=== PATIENT | female | born 1955 | race Caucasian/White ===

== ENCOUNTER 2019-07-24 14:08 | Emergency (ER) | payer MEDICARE ==
[~2019-07-24] VITALS: Ht 152.4 cm; Wt 52.0 kg
--- NOTE | 2019-07-24 14:19 | NUR ---
BIB [facility]. C/O lower ABD pain and dark tarry stools x 1 month. Reports lightheadedness and sternal, non-radiating CP. Denies hematemesis. Denies palpitations or SOB beyond her norm (hx COPD, current smoker). Placed on NIBP, pulse ox and manager cardiac cath. Will continue to monitor.
[2019-07-24] MEDS ORDERED: ONDANSETRON 2MG/ML, 2ML ONE (14:46)
[2019-07-24] MEDS ORDERED: FAMOTIDINE 20 MG/2 ML ONE (14:46)
--- NOTE | 2019-07-24 14:55 | NUR ---
Pt resting in bed, getting lab drawn and then to xray.
--- NOTE | 2019-07-24 15:05 | NUR ---
Pt back from xray.
[2019-07-24 15:06] LABS: BASOPHILS # (AUTO) 0.04 x10^3/uL (0-0.1); BASOPHILS % (AUTO) 1 % (0-1); EOSINOPHILS # (AUTO) 0.18 x10^3/uL (0-0.4); EOSINOPHILS % (AUTO) 3 % (1-7); LYMPHOCYTES # (AUTO) 1.91 x10^3/uL (1-3.4); LYMPHOCYTES % (AUTO) 29 % (22-44); MD NO; MEAN CORPUSCULAR HEMOGLOBIN 33.8 pg (27.0-34.8); MEAN CORPUSCULAR HGB CONC 33.1 g/dL (32.4-35.8); MEAN CORPUSCULAR VOLUME 102.3 fL (80-100); MEAN PLATELET VOLUME 6.6 fL (7.4-10.4); MONOCYTES # (AUTO) 0.42 x10^3/uL (0.2-0.8); MONOCYTES % (AUTO) 7 % (2-9); NEUTROPHILS # (AUTO) 3.95 x10^3/uL (1.8-6.8); NEUTROPHILS % (AUTO) 61 % (42-75); PLATELET COUNT 304 x10^3/uL (130-400); RED BLOOD COUNT 3.02 x10^6/uL (3.82-5.3); RED CELL DISTRIBUTION WIDTH 17.6 % (9.6-15.2)
[2019-07-24 15:11] LABS: INTERNATIONAL NORMALIZED RATIO 1.02 (0.93-1.1); PROTHROMBIN TIME 10.8 Seconds (9.6-11.5)
[2019-07-24 15:14] LABS: ALANINE AMINOTRANSFERASE 37 U/L (12-78); ALBUMIN 2.8 g/dL (3.4-5.0); ANION GAP 4 mmol/L (5-15); CALCIUM 7.6 mg/dL (8.5-10.1); CHLORIDE 113 mmol/L (98-107); CREATININE 0.67 mg/dL (0.55-1.02)
[2019-07-24 15:16] LABS: ALKALINE PHOSPHATASE 160 U/L (45-117); BILIRUBIN,TOTAL 0.3 mg/dL (0.2-1.0); TOTAL PROTEIN 6.4 g/dL (6.4-8.2)
--- NOTE | 2019-07-24 15:32 | NUR ---
Ambulated with a steady gait to the restroom.
[2019-07-24] MEDS ORDERED: FAMOTIDINE 20 MG/2 ML IV ONE (16:00)
[2019-07-24] MEDS ORDERED: SODIUM CHLORIDE FLUSH 10ML SYR IVF ONE (16:00)
[2019-07-24] MEDS ORDERED: ONDANSETRON 2MG/ML, 2ML IVPush ONE (16:00)
[2019-07-24] MEDS ORDERED: SODIUM CHLORIDE 0.9% 1,000ML IVBOLUS ONE (16:00)
[2019-07-24 16:02] VITALS: BP 139/85
[2019-07-24 16:18] LABS: MICROSCOPIC INDICATED
[2019-07-24 16:23] LABS: CULTURE INDICATED? NO
--- NOTE | 2019-07-24 16:36 | NUR ---
Patient/Caregiver given discharge instructions and they have confirmed that they understand the instructions. Patient ambulatory with steady gait.
== END 2019-07-24 16:39 | disposition home or self-care (01) ==
LOC: ED 15:18
DX: D53.9 Nutritional anemia, unspecified (principal); E88.09 Other disorders of plasma-protein metabolism, not elsewhere classified; E83.51 Hypocalcemia; R10.9 Unspecified abdominal pain; R11.2 Nausea with vomiting, unspecified
CPT/HCPCS: 36415; 74021; 80053; 81001; 83605; 83690; 85025; 85610; 93005; 96361; 96374; 96375; 99285; J2405; J3490; J7030

== ENCOUNTER 2019-07-26 13:26 | Emergency (ER) | payer MEDICARE ==
[~2019-07-26] VITALS: Ht 152.4 cm; Wt 53.6 kg
--- NOTE | 2019-07-26 13:52 | NUR ---
PT TO ED FOR BILATERAL LOWER ABD PAIN RELATED TO INABLILITY TO URINATE X2-3 DAYS. PT IS A POOR HISTORIAN AND IS SOMEWHAT UNCOOPERATIVE WITH ASSESSMENT. PT'S CONTINUES TO SPEAK OVER PT AND ANSWER FOR HER. PT CONNECTED TO MONITORS. VSS. PT REPEATS, "I FEEL LIKE I'M SLIPPING AWAY," MANY TIMES OVER. PT REASSURED THAT ALL VS ARE STABLE AT THIS TIME. PT UNWILLING TO ATTEMPT TO PROVIDE URINE SAMPLE. AWAITING EDMD ASSESSMENT.
[2019-07-26 13:58] VITALS: BP 136/91
--- NOTE | 2019-07-26 13:58 | NUR ---
PT BLSADDER SCANNED: 278mL
--- NOTE | 2019-07-26 14:00 | NUR ---
attempted to educate pt on s/s of dehydration. pt had an outburst stating "you're telling me there's nothing wrong with me and I'm in pain! You're just being a bitch!" pt educated that her behavior will not be tolerated and if it happens again, security will be called and she will be escorted to the exit.
--- NOTE | 2019-07-26 14:07 | NUR ---
DR. ALEXANDER TO BS FOR ASSESSMENT.
--- NOTE | 2019-07-26 14:43 | NUR ---
BURROUGHS PLACED WTIH STERILE TECHNIQUE. ASSISTED BY JESSICA REILLY. PT TOLERATED WELL.
[2019-07-26] MEDS ORDERED: PHENAZOPYRIDINE 200 MG TABLET ONE (14:53)
--- NOTE | 2019-07-26 14:59 | NUR ---
PT AND FOUND TO BE DRINKING VODKA IN HOSPITAL ROOM. PT ASKED TO GET DRESSED AND LEAVE. PT BECAME VERBALLY AGRESSIVE AND ABUSINVE WITH STAFF, YELLING, CUSSING AND CONINUING TO CALL STAFF NAMES. SECURITY CALLED AND ESCORTING PT TO EXIT. UNKNOWN WHERE IS AT THIS TIME.
[2019-07-26] MEDS ORDERED: PHENAZOPYRIDINE 200 MG TABLET PO ONE (15:00)
[2019-07-26 15:06] LABS: BASOPHILS % (AUTO) 0 % (0-1); EOSINOPHILS # (AUTO) 0.12 x10^3/uL (0-0.4); EOSINOPHILS % (AUTO) 2 % (1-7); LYMPHOCYTES # (AUTO) 1.61 x10^3/uL (1-3.4); LYMPHOCYTES % (AUTO) 26 % (22-44); MD NO; MEAN CORPUSCULAR HEMOGLOBIN 34.1 pg (27.0-34.8); MEAN CORPUSCULAR HGB CONC 33.4 g/dL (32.4-35.8); MEAN CORPUSCULAR VOLUME 102.3 fL (80-100); MEAN PLATELET VOLUME 6.6 fL (7.4-10.4); MONOCYTES # (AUTO) 0.39 x10^3/uL (0.2-0.8); MONOCYTES % (AUTO) 6 % (2-9); NEUTROPHILS # (AUTO) 3.99 x10^3/uL (1.8-6.8); NEUTROPHILS % (AUTO) 65 % (42-75); PLATELET COUNT 251 x10^3/uL (130-400); RED BLOOD COUNT 2.93 x10^6/uL (3.82-5.3); RED CELL DISTRIBUTION WIDTH 17.4 % (9.6-15.2)
[2019-07-26 15:08] LABS: MICROSCOPIC NOT IND
[2019-07-26 15:10] LABS: CULTURE INDICATED? NO
[2019-07-26 15:14] LABS: ALBUMIN 3.1 g/dL (3.4-5.0); ANION GAP 6 mmol/L (5-15); CALCIUM 7.5 mg/dL (8.5-10.1); CHLORIDE 110 mmol/L (98-107); CREATININE 0.76 mg/dL (0.55-1.02)
--- NOTE | 2019-07-26 15:29 | NUR ---
security notified that is unable to be found.
--- NOTE | 2019-07-26 15:30 | NUR ---
dc paperwork given to pt. pt dc with chapa in place and educated to follow up with urologist on dc paperwork.
== END 2019-07-26 15:32 | disposition home or self-care (01) ==
LOC: ED 14:43
DX: R33.9 Retention of urine, unspecified (principal); D53.9 Nutritional anemia, unspecified; R10.9 Unspecified abdominal pain; R10.30 Lower abdominal pain, unspecified; J44.9 Chronic obstructive pulmonary disease, unspecified
CPT/HCPCS: 36415; 51702; 80048; 81003; 82040; 85025; 99284

== ENCOUNTER 2019-07-27 17:46 | Emergency (ER) | payer MEDICARE ==
[~2019-07-27] VITALS: Ht 152.4 cm; Wt 52.8 kg
--- NOTE | 2019-07-27 18:18 | NUR ---
This is a 63 yo female coming in for "I have a catheter in me and I need to get it out, its very painful, looked in bag and there was a worm in there". Patient is afebrile, c/o bilateraly lower quadrant abd pain starting 4 days ago. Patient states she had catheter placed at this facility two days ago, per history, patient was seen here yesterday for "can't urinate" where urinary catheter was placed. Urine appears polly colored, and malodorous. Spo2 and BP monitoring in place, mitul buchanan at this time. Waiting for ERP eval.
[2019-07-27] MEDS ORDERED: ETOMIDATE 20 MG/10 ML ONE (18:20)
[2019-07-27 18:56] LABS: ALANINE AMINOTRANSFERASE 50 U/L (12-78); CALCIUM 7.2 mg/dL (8.5-10.1); CHLORIDE 110 mmol/L (98-107); CREATININE 0.82 mg/dL (0.55-1.02)
[2019-07-27 18:58] LABS: ALKALINE PHOSPHATASE 222 U/L (45-117); BILIRUBIN,TOTAL 0.4 mg/dL (0.2-1.0); TOTAL PROTEIN 6.6 g/dL (6.4-8.2)
--- NOTE | 2019-07-27 18:58 | NUR ---
BLADDER SCANNER SHOWED APPROX 24ML URINE IN BLADDER. JESSICA PORTILLO AWARE
--- NOTE | 2019-07-27 19:00 | NUR ---
URINARY CATHETER REMOVED PER JESSICA PORTILLO INSTRUCTIONS TO OBTAIN STERILE CLEAN UA. STRIAGHT CATH PERFORMED TO OBTAIN STERILE UA. WALKED TO LAB
[2019-07-27 19:06] LABS: ANION GAP 12 mmol/L (5-15)
[2019-07-27 19:12] LABS: BASOPHILS # (AUTO) 0.01 x10^3/uL (0-0.1); BASOPHILS % (AUTO) 0 % (0-1); EOSINOPHILS # (AUTO) 0.17 x10^3/uL (0-0.4); EOSINOPHILS % (AUTO) 2 % (1-7); LYMPHOCYTES # (AUTO) 1.69 x10^3/uL (1-3.4); LYMPHOCYTES % (AUTO) 20 % (22-44); MD NO; MEAN CORPUSCULAR HEMOGLOBIN 34.4 pg (27.0-34.8); MEAN CORPUSCULAR HGB CONC 33.6 g/dL (32.4-35.8); MEAN CORPUSCULAR VOLUME 102.5 fL (80-100); MEAN PLATELET VOLUME 6.6 fL (7.4-10.4); MONOCYTES # (AUTO) 0.33 x10^3/uL (0.2-0.8); MONOCYTES % (AUTO) 4 % (2-9); NEUTROPHILS % (AUTO) 74 % (42-75); PLATELET COUNT 227 x10^3/uL (130-400); RED BLOOD COUNT 2.88 x10^6/uL (3.82-5.3); RED CELL DISTRIBUTION WIDTH 17.8 % (9.6-15.2)
--- NOTE | 2019-07-27 19:35 | NUR ---
PIV PLACED FOR CT
[2019-07-27 19:45] LABS: CULTURE INDICATED? YES; MICROSCOPIC INDICATED
[2019-07-27] MEDS ORDERED: OMNIPAQUE 350 MG/ML, 100ML BOTTLE ONE (19:49)
[2019-07-27] MEDS ORDERED: MORPHINE SULFATE 4 MG/ML, 1ML ONE (19:56)
[2019-07-27] MEDS ORDERED: ONDANSETRON 2MG/ML, 2ML ONE (19:56)
[2019-07-27] MEDS ORDERED: SODIUM CHLORIDE FLUSH 10ML SYR IVF ONE (20:00)
[2019-07-27] MEDS ORDERED: MORPHINE SULFATE 4 MG/ML, 1ML IVPush PRN ×2 (20:00)
[2019-07-27] MEDS ORDERED: ONDANSETRON 2MG/ML, 2ML IVPush ONE (20:00)
--- NOTE | 2019-07-27 20:03 | NUR ---
PATIENT MEDICATED PER EMAR. TOLERATED WELL
[2019-07-27 20:47] VITALS: BP 117/76
--- NOTE | 2019-07-27 20:49 | NUR ---
PATIENT RESTING ON GURNEY, RESPIRATIONS EVEN AND UNLABORED. VSS
--- NOTE | 2019-07-27 21:19 | NUR ---
Patient/Caregiver given discharge instructions and they have confirmed that they understand the instructions. Patient ambulatory with steady gait.
== END 2019-07-27 21:21 | disposition home or self-care (01) ==
LOC: ED 18:00
DX: R10.9 Unspecified abdominal pain (principal); F10.129 Alcohol abuse with intoxication, unspecified; J44.9 Chronic obstructive pulmonary disease, unspecified; Y90.9 Presence of alcohol in blood, level not specified
CPT/HCPCS: 36415; 74177; 80053; 80307; 81001; 85025; 87086; 96374; 96375; 99285; J2270; J2405; Q9967

== ENCOUNTER 2019-07-28 07:37 | Inpatient (IN) | payer MEDICARE ==
[~2019-07-28] VITALS: Ht 152.4 cm; Wt 51.3 kg
[2019-07-28] MEDS ORDERED: ONDANSETRON 2MG/ML, 2ML ONE (07:59)
[2019-07-28] MEDS ORDERED: LORazepam 2 MG/ML, 1ML ONE (08:00)
[2019-07-28] MEDS ORDERED: SODIUM CHLORIDE 0.9% 1,000ML IVBOLUS ONE (08:00)
[2019-07-28] MEDS ORDERED: THIAMINE 100 MG in SODIUM CHLORIDE 0.9% 50 ML IVPB ONE (08:00)
[2019-07-28] MEDS ORDERED: SODIUM CHLORIDE FLUSH 10ML SYR IVF ONE (08:00)
[2019-07-28] MEDS ORDERED: ONDANSETRON 2MG/ML, 2ML IVPush ONE (08:00)
[2019-07-28] MEDS: LORazepam 2 MG/ML, 1ML IVPush PRN ×2 (08:02→09:56)
[2019-07-28 08:30] LABS: MEAN CORPUSCULAR HEMOGLOBIN 34.3 pg (27.0-34.8); MEAN CORPUSCULAR HGB CONC 32.8 g/dL (32.4-35.8); MEAN CORPUSCULAR VOLUME 104.7 fL (80-100); MEAN PLATELET VOLUME 6.6 fL (7.4-10.4); PLATELET COUNT 237 x10^3/uL (130-400); RED BLOOD COUNT 3.22 x10^6/uL (3.82-5.3); RED CELL DISTRIBUTION WIDTH 17.8 % (9.6-15.2)
--- NOTE | 2019-07-28 08:30 | NUR ---
senait cruz at bedside.
[2019-07-28 08:32] LABS: ALANINE AMINOTRANSFERASE 67 U/L (12-78); ALBUMIN 3.4 g/dL (3.4-5.0); ANION GAP 16 mmol/L (5-15); CALCIUM 7.6 mg/dL (8.5-10.1); CHLORIDE 107 mmol/L (98-107); CREATININE 0.69 mg/dL (0.55-1.02)
[2019-07-28 08:35] LABS: ALKALINE PHOSPHATASE 334 U/L (45-117); BILIRUBIN,TOTAL 0.8 mg/dL (0.2-1.0); TOTAL PROTEIN 7.5 g/dL (6.4-8.2)
[2019-07-28] MEDS ORDERED: D5%-LACTATED RINGERS 1,000 ML IV SCH (08:50)
[2019-07-28] MEDS ORDERED: CALCIUM CARBONATE 500 MG TABLET PO ONE (08:50)
[2019-07-28 08:51] LABS: BASOPHILS % (AUTO) 0 % (0-1); EOSINOPHILS # (AUTO) 0.03 x10^3/uL (0-0.4); EOSINOPHILS % (AUTO) 0 % (1-7); LYMPHOCYTES # (AUTO) 1.04 x10^3/uL (1-3.4); LYMPHOCYTES % (AUTO) 9 % (22-44); MD SCAN; MONOCYTES # (AUTO) 0.42 x10^3/uL (0.2-0.8); MONOCYTES % (AUTO) 4 % (2-9); NEUTROPHILS # (AUTO) 9.76 x10^3/uL (1.8-6.8); NEUTROPHILS % (AUTO) 87 % (42-75)
[2019-07-28] MEDS ORDERED: POTASSIUM CHLORIDE 20 MEQ, MAGNESIUM SULFATE 2 GM, THIAMINE 200 MG, MVI ADULT 10 ML, FO... IV SCH ×2 (09:18→12:00)
--- NOTE | 2019-07-28 09:23 | NUR ---
pt resting in bed, call light in reach.
[2019-07-28] MEDS ORDERED: DEXTROSE 50%, 50ML SYRINGE IVPush PRN (09:30)
[2019-07-28] MEDS ORDERED: ONDANSETRON 2MG/ML, 2ML IVPush PRN (09:30)
[2019-07-28] MEDS ORDERED: DEXTROSE 4 GM TAB.CHEW PO PRN (09:30)
[2019-07-28] MEDS ORDERED: PROMETHAZINE 25 MG/ML, 1ML IM PRN (09:30)
[2019-07-28] MEDS ORDERED: LABETALOL 5MG/ML, 20ML IVPush PRN (09:30)
[2019-07-28] MEDS ORDERED: LORazepam 2 MG/ML, 1ML IV PRN ×2 (09:30)
[2019-07-28] MEDS ORDERED: GLUCAGON 1 MG IM PRN (09:30)
[2019-07-28] MEDS ORDERED: ACETAMINOPHEN 325 MG TABLET PO PRN (09:30)
[2019-07-28] MEDS ORDERED: hydrALAzine 20 MG/ML, 1ML IVPush PRN (09:30)
[2019-07-28] MEDS ORDERED: LORazepam 1MG TABLET PO PRN ×3 (09:30)
--- NOTE | 2019-07-28 10:12 | NUR ---
report called to Ritu LOPEZ.
[2019-07-28 11:19] VITALS: BP 161/93
[2019-07-28] MEDS: LORazepam 2 MG/ML, 1ML IV PRN ×3 (11:54→19:31)
[2019-07-28] MEDS: HEPARIN 5,000 UNITS/ML, 1ML SQ SCH ×2 (11:55→19:31)
[2019-07-28] MEDS: NICOTINE 14MG/24 HR PATCH.TD24 TD SCH (12:04)
[2019-07-28 12:49] VITALS: BP 154/97
[2019-07-28 18:45] VITALS: BP 157/94
[2019-07-28] MEDS: SODIUM CHLORIDE FLUSH 10ML SYR IVF SCH (19:31)
[2019-07-29 02:00] VITALS: BP 150/81
[2019-07-29] MEDS: LORazepam 2 MG/ML, 1ML IV PRN ×3 (04:04→14:50)
[2019-07-29] MEDS: HEPARIN 5,000 UNITS/ML, 1ML SQ SCH ×3 (04:04→20:21)
[2019-07-29 04:25] LABS: BASOPHILS # (AUTO) 0.09 x10^3/uL (0-0.1); BASOPHILS % (AUTO) 1 % (0-1); EOSINOPHILS # (AUTO) 0.25 x10^3/uL (0-0.4); EOSINOPHILS % (AUTO) 3 % (1-7); LYMPHOCYTES % (AUTO) 21 % (22-44); MD NO; MEAN CORPUSCULAR VOLUME 103.1 fL (80-100); MEAN PLATELET VOLUME 6.9 fL (7.4-10.4); MONOCYTES % (AUTO) 4 % (2-9); NEUTROPHILS # (AUTO) 5.37 x10^3/uL (1.8-6.8); NEUTROPHILS % (AUTO) 71 % (42-75); PLATELET COUNT 201 x10^3/uL (130-400); RED BLOOD COUNT 3.14 x10^6/uL (3.82-5.3); RED CELL DISTRIBUTION WIDTH 16.8 % (9.6-15.2)
[2019-07-29 04:30] LABS: ALBUMIN 3.1 g/dL (3.4-5.0); ANION GAP 11 mmol/L (5-15); CALCIUM 7.7 mg/dL (8.5-10.1); CHLORIDE 102 mmol/L (98-107)
[2019-07-29 04:34] LABS: ALANINE AMINOTRANSFERASE 45 U/L (12-78); ALKALINE PHOSPHATASE 278 U/L (45-117); CREATININE 0.57 mg/dL (0.55-1.02); TOTAL PROTEIN 6.9 g/dL (6.4-8.2)
[2019-07-29 07:11] VITALS: BP 135/85
[2019-07-29] MEDS: SODIUM CHLORIDE FLUSH 10ML SYR IVF SCH ×2 (07:53→20:22)
[2019-07-29] MEDS: MULTIVITAMIN 1 TABLET PO SCH (08:52)
[2019-07-29] MEDS: THIAMINE 100MG TABLET PO SCH ×2 (08:52→20:21)
[2019-07-29] MEDS: FOLIC ACID 1 MG TABLET PO SCH (08:52)
[2019-07-29] MEDS: NEUTRA PHOS K 250 MG TABLET PO SCH ×2 (08:52→20:21)
[2019-07-29] MEDS: NICOTINE 14MG/24 HR PATCH.TD24 TD SCH (11:10)
[2019-07-29] MEDS ORDERED: POTASSIUM CHLORIDE 20 MEQ, MAGNESIUM SULFATE 2 GM, THIAMINE 200 MG, MVI ADULT 10 ML, FO... IV SCH (11:30)
[2019-07-29] MEDS: D5%-0.45% NACL+KCL 10MEQ 1,000 ML IV SCH (12:30)
[2019-07-29 13:35] VITALS: BP 118/75
[2019-07-29 13:45] VITALS: BP 148/82
[2019-07-29 18:10] VITALS: BP 126/90
[2019-07-29 20:01] LABS: TROPONIN I < 0.015 ng/mL (0.000-0.045)
[2019-07-29 20:32] VITALS: BP 133/89
[2019-07-30 02:09] VITALS: BP 124/82
[2019-07-30 03:36] LABS: BASOPHILS # (AUTO) 0.03 x10^3/uL (0-0.1); BASOPHILS % (AUTO) 0 % (0-1); EOSINOPHILS # (AUTO) 0.22 x10^3/uL (0-0.4); EOSINOPHILS % (AUTO) 3 % (1-7); LYMPHOCYTES # (AUTO) 1.46 x10^3/uL (1-3.4); LYMPHOCYTES % (AUTO) 18 % (22-44); MD NO; MEAN CORPUSCULAR HEMOGLOBIN 34.6 pg (27.0-34.8); MEAN CORPUSCULAR HGB CONC 32.9 g/dL (32.4-35.8); MEAN CORPUSCULAR VOLUME 105.1 fL (80-100); MEAN PLATELET VOLUME 7.2 fL (7.4-10.4); MONOCYTES # (AUTO) 0.45 x10^3/uL (0.2-0.8); MONOCYTES % (AUTO) 6 % (2-9); NEUTROPHILS # (AUTO) 5.77 x10^3/uL (1.8-6.8); NEUTROPHILS % (AUTO) 73 % (42-75); PLATELET COUNT 173 x10^3/uL (130-400); RED CELL DISTRIBUTION WIDTH 17.7 % (9.6-15.2)
[2019-07-30 03:38] LABS: ALBUMIN 2.9 g/dL (3.4-5.0); ANION GAP 9 mmol/L (5-15); CALCIUM 7.9 mg/dL (8.5-10.1); CHLORIDE 102 mmol/L (98-107)
[2019-07-30 03:43] LABS: ALANINE AMINOTRANSFERASE 34 U/L (12-78); ALKALINE PHOSPHATASE 238 U/L (45-117); CREATININE 0.61 mg/dL (0.55-1.02); TOTAL PROTEIN 6.4 g/dL (6.4-8.2)
[2019-07-30 03:53] LABS: TROPONIN I < 0.015 ng/mL (0.000-0.045)
[2019-07-30] MEDS: HEPARIN 5,000 UNITS/ML, 1ML SQ SCH ×3 (04:16→20:05)
[2019-07-30 07:16] VITALS: BP 137/89
[2019-07-30] MEDS: MULTIVITAMIN 1 TABLET PO SCH (08:32)
[2019-07-30] MEDS: NEUTRA PHOS K 250 MG TABLET PO SCH ×2 (08:32→20:05)
[2019-07-30] MEDS: SODIUM CHLORIDE FLUSH 10ML SYR IVF SCH ×2 (08:32→20:05)
[2019-07-30] MEDS: FOLIC ACID 1 MG TABLET PO SCH (08:32)
[2019-07-30] MEDS: THIAMINE 100MG TABLET PO SCH ×2 (08:32→20:05)
[2019-07-30] MEDS: LORazepam 0.5MG TABLET PO PRN ×4 (08:39→20:11)
[2019-07-30] MEDS: D5%-0.45% NACL+KCL 10MEQ 1,000 ML IV SCH (11:32)
[2019-07-30] MEDS: NICOTINE 14MG/24 HR PATCH.TD24 TD SCH (11:32)
[2019-07-30 12:15] VITALS: BP 147/87
[2019-07-30] MEDS ORDERED: POTASSIUM CHLORIDE 40 MEQ in SODIUM CHLORIDE 0.9% 500 ML IV ONE (16:00)
[2019-07-30 20:00] VITALS: BP 153/99
[2019-07-31] MEDS: LORazepam 0.5MG TABLET PO PRN ×2 (00:27→09:13)
[2019-07-31 00:28] VITALS: BP 158/98
[2019-07-31] MEDS: HEPARIN 5,000 UNITS/ML, 1ML SQ SCH (04:37)
[2019-07-31] MEDS: D5%-0.45% NACL+KCL 10MEQ 1,000 ML IV SCH (04:37)
[2019-07-31 04:55] LABS: ANION GAP 9 mmol/L (5-15); CALCIUM 8.4 mg/dL (8.5-10.1); CHLORIDE 106 mmol/L (98-107); CREATININE 0.55 mg/dL (0.55-1.02)
[2019-07-31 04:56] LABS: BASOPHILS % (AUTO) 0 % (0-1); EOSINOPHILS % (AUTO) 3 % (1-7); LYMPHOCYTES # (AUTO) 1.37 x10^3/uL (1-3.4); LYMPHOCYTES % (AUTO) 20 % (22-44); MD NO; MEAN CORPUSCULAR HEMOGLOBIN 34.5 pg (27.0-34.8); MEAN CORPUSCULAR HGB CONC 32.8 g/dL (32.4-35.8); MEAN CORPUSCULAR VOLUME 105.2 fL (80-100); MEAN PLATELET VOLUME 7.8 fL (7.4-10.4); MONOCYTES # (AUTO) 0.44 x10^3/uL (0.2-0.8); MONOCYTES % (AUTO) 7 % (2-9); NEUTROPHILS # (AUTO) 4.74 x10^3/uL (1.8-6.8); NEUTROPHILS % (AUTO) 70 % (42-75); PLATELET COUNT 179 x10^3/uL (130-400); RED BLOOD COUNT 2.88 x10^6/uL (3.82-5.3); RED CELL DISTRIBUTION WIDTH 17.9 % (9.6-15.2)
[2019-07-31 07:56] VITALS: BP 147/99
[2019-07-31] MEDS: THIAMINE 100MG TABLET PO SCH (09:12)
[2019-07-31] MEDS: FOLIC ACID 1 MG TABLET PO SCH (09:12)
[2019-07-31] MEDS: MULTIVITAMIN 1 TABLET PO SCH (09:12)
[2019-07-31] MEDS: NEUTRA PHOS K 250 MG TABLET PO SCH (09:12)
[2019-07-31] MEDS: SODIUM CHLORIDE FLUSH 10ML SYR IVF SCH (09:13)
== END 2019-07-31 10:40 | disposition left against medical advice (07) | DRG 894 ==
LOC: ED 07:53 → EDIP 08:55 → 4EST 11:05 → 4NW 07-29 11:06
PROVIDERS: ADMIT Internal Medicine; ATTEND Hospitalist
DX: F10.239 Alcohol dependence with withdrawal, unspecified (principal); E87.2 Acidosis; E86.0 Dehydration; K70.10 Alcoholic hepatitis without ascites; D53.9 Nutritional anemia, unspecified; D72.829 Elevated white blood cell count, unspecified; E16.2 Hypoglycemia, unspecified; E83.39 Other disorders of phosphorus metabolism; E83.51 Hypocalcemia; F17.210 Nicotine dependence, cigarettes, uncomplicated; I10 Essential (primary) hypertension; I25.2 Old myocardial infarction; Z59.0 Homelessness; Z90.710 Acquired absence of both cervix and uterus; Z71.6 Tobacco abuse counseling; Z90.49 Acquired absence of other specified parts of digestive tract; Y90.9 Presence of alcohol in blood, level not specified
CPT/HCPCS: 36415; 71045; 80048; 80053; 80307; 82607; 82962; 83605; 83690; 83735; 84100; 84443; 84484; 85025; 93005; 96374; 99285; G0378; J1644; J2405; J3411; J3475; J3480; J7042; J2060; J7030; J7040; U0001

== ENCOUNTER 2020-10-03 15:41 | Inpatient (IN) | payer MEDICARE ==
[~2020-10-03] VITALS: Ht 157.5 cm; Wt 53.8 kg
--- NOTE | 2020-10-03 16:24 | NUR ---
Bladder scanner shows 54ml urine, pt c/o "feeling bloated", abd is soft NT. Pt asking for peptobismol. AIDEt provided.
--- NOTE | 2020-10-03 16:32 | NUR ---
Pt states she drinks vodka every day, skin appears slightly jaundiced. VSS.
--- NOTE | 2020-10-03 16:35 | NUR ---
RECEIVED UPDATE FROM MILIND KENNEY RN. CHANTELL DESOUZA. CALL LIGHT W/IN REACH.
[2020-10-03] MEDS ORDERED: SODIUM CHLORIDE FLUSH 10ML SYR IVF ONE (17:30)
[2020-10-03] MEDS ORDERED: SODIUM CHLORIDE 0.9% 1,000 ML IV ONE (17:30)
[2020-10-03 17:43] LABS: BASOPHILS % (AUTO) 0 % (0-1); EOSINOPHILS % (AUTO) 1 % (1-7); LYMPHOCYTES % (AUTO) 11 % (22-44); MEAN CORPUSCULAR HEMOGLOBIN 35.1 pg (27.0-34.8); MEAN CORPUSCULAR HGB CONC 34.2 g/dL (32.4-35.8); MEAN PLATELET VOLUME 6.9 fL (7.4-10.4); MONOCYTES % (AUTO) 5 % (2-9); NEUTROPHILS % (AUTO) 84 % (42-75); PLATELET COUNT 437 x10^3/uL (130-400); RED BLOOD COUNT 4.32 x10^6/uL (3.82-5.3); RED CELL DISTRIBUTION WIDTH 16.5 % (9.6-15.2)
--- NOTE | 2020-10-03 17:47 | NUR ---
PIV INSERTED, IVF STARTED PER MAR. PT STRIAGHT CATH FOR UA, WALKED DOWN TO LAB.
[2020-10-03 17:52] LABS: ALANINE AMINOTRANSFERASE 31 U/L (12-78); ALBUMIN 3.4 g/dL (3.4-5.0); ANION GAP 12 mmol/L (5-15); CALCIUM 8.8 mg/dL (8.5-10.1); CHLORIDE 100 mmol/L (98-107); CREATININE 0.87 mg/dL (0.55-1.02)
[2020-10-03 17:54] LABS: ALKALINE PHOSPHATASE 185 U/L (45-117); BILIRUBIN,TOTAL 0.4 mg/dL (0.2-1.0); TOTAL PROTEIN 8.5 g/dL (6.4-8.2)
[2020-10-03 17:58] LABS: MICROSCOPIC AUTO
[2020-10-03] MEDS ORDERED: POTASSIUM CHLORIDE 20 MEQ TAB.ER.PRT PO ONE (18:00)
[2020-10-03] MEDS ORDERED: POTASSIUM CHLORIDE 20 MEQ TAB.ER.PRT ONE (18:05)
--- NOTE | 2020-10-03 18:18 | NUR ---
MEDICATED PER MAR. NO ABX AT THIS TIME CULTURES HAVE NOT BEEN DRAWN. PT IS AWARE OF POC. EMMYN, CALL LIGHT W/ INREACH.
--- NOTE | 2020-10-03 18:20 | NUR ---
PT TO CT
[2020-10-03] MEDS ORDERED: SODIUM CHLORIDE FLUSH 10ML SYR IVF PRN (18:30)
[2020-10-03] MEDS ORDERED: CEFTRIAXONE 1,000 MG in DEXTROSE 5% 50 ML IVPB ONE (18:30)
[2020-10-03] MEDS ORDERED: POTASSIUM CHLORIDE 20 MEQ in SODIUM CHLORIDE 0.9% 1,000 ML IV ONE (18:30)
--- NOTE | 2020-10-03 18:47 | NUR ---
LAB BEDSIDE, BLAYNE CULTURE, ABX STARTED. NADN, CALL LIGHT W/IN REACH.
[2020-10-03] MEDS ORDERED: OMNIPAQUE 350 MG/ML, 100ML BOTTLE ONE (18:55)
--- NOTE | 2020-10-03 19:13 | NUR ---
PT UP TO BATHROOM AND BACK W/O INCIDENT, STEADY GAIT. H BEDSIDE. NADN, CALL LIGHT W/IN REACH.
[2020-10-03] MEDS ORDERED: ONDANSETRON ODT 4 MG PO PRN (19:30)
[2020-10-03] MEDS ORDERED: DOCUSATE 100 MG CAPSULE PO PRN (19:30)
[2020-10-03] MEDS ORDERED: BISACODYL 10 MG SUPP PR PRN (19:30)
[2020-10-03] MEDS ORDERED: POLYETHYLENE GLYCOL 17 GM PACKET PO PRN (19:30)
[2020-10-03] MEDS ORDERED: NICOTINE 14MG/24 HR PATCH.TD24 TD ONE (19:30)
[2020-10-03] MEDS ORDERED: CHLORDIAZEPOXIDE 25 MG CAPSULE PO SCH ×2 (19:30)
[2020-10-03] MEDS ORDERED: ENALAPRILAT 1.25 MG/ML, 2ML IVPush PRN (19:30)
[2020-10-03] MEDS ORDERED: LABETALOL 5MG/ML, 20ML IVPush PRN (19:30)
[2020-10-03] MEDS ORDERED: LORazepam 1MG TABLET PO PRN ×2 (19:30)
[2020-10-03] MEDS ORDERED: LORazepam 2 MG/ML, 1ML IV PRN ×3 (19:30)
[2020-10-03] MEDS ORDERED: ONDANSETRON 2MG/ML, 2ML IVPush PRN (19:30)
--- NOTE | 2020-10-03 19:46 | NUR ---
waiting for [facility] order to be verified by pharmacy prior to administration of medication.
--- NOTE | 2020-10-03 20:15 | NUR ---
ATTEMPTED TO CALL TO GIVE REPORT AT 2009, WAITED A FEW MINUTES. WILL TRY AGAIN.
--- NOTE | 2020-10-03 20:26 | NUR ---
[facility] REPORT GIVEN TO JOSÉ MANUEL, ANSWERED QUESTIONS. PT IS READY TO GO.
[2020-10-03] MEDS: ENOXAPARIN 40 MG/0.4 ML SQ SCH (22:52)
[2020-10-03] MEDS: KETOROLAC 30 MG/1 ML IV PRN (22:52)
[2020-10-03] MEDS: THIAMINE 200 MG, MVI ADULT 10 ML, FOLIC ACID 1 MG in D5%-0.9% NACL 1,000 ML IV SCH (23:08)
[2020-10-04 01:20] VITALS: BP 155/100
[2020-10-04 07:26] LABS: BASOPHILS % (AUTO) 1 % (0-1); EOSINOPHILS % (AUTO) 2 % (1-7); LYMPHOCYTES % (AUTO) 24 % (22-44); MEAN CORPUSCULAR HEMOGLOBIN 35.1 pg (27.0-34.8); MEAN CORPUSCULAR HGB CONC 33.8 g/dL (32.4-35.8); MEAN PLATELET VOLUME 7.1 fL (7.4-10.4); MONOCYTES % (AUTO) 8 % (2-9); NEUTROPHILS % (AUTO) 65 % (42-75); PLATELET COUNT 386 x10^3/uL (130-400); RED BLOOD COUNT 3.96 x10^6/uL (3.82-5.3); RED CELL DISTRIBUTION WIDTH 16.1 % (9.6-15.2)
[2020-10-04 07:39] LABS: CHLORIDE 103 mmol/L (98-107)
[2020-10-04 07:50] LABS: ALANINE AMINOTRANSFERASE 26 U/L (12-78); ALKALINE PHOSPHATASE 153 U/L (45-117); ANION GAP 6 mmol/L (5-15); BILIRUBIN,TOTAL 0.6 mg/dL (0.2-1.0); CALCIUM 8.3 mg/dL (8.5-10.1); CREATININE 0.65 mg/dL (0.55-1.02); TOTAL PROTEIN 7.1 g/dL (6.4-8.2)
[2020-10-04 07:58] VITALS: BP 171/85
[2020-10-04] MEDS: ACETAMINOPHEN 325 MG TABLET PO PRN (08:53)
[2020-10-04] MEDS ORDERED: POTASSIUM CHLORIDE 40 MEQ in SODIUM CHLORIDE 0.9% 500 ML IV ONE (09:30)
[2020-10-04] MEDS ORDERED: MAGNESIUM SULFATE PMX 4GM/100M 100 ML IV ONE (09:30)
[2020-10-04 12:40] VITALS: BP 146/88
[2020-10-04] MEDS: NS + 20MEQ KCL 1,000 ML IV SCH (16:25)
[2020-10-04] MEDS: KETOROLAC 30 MG/1 ML IV PRN (16:26)
[2020-10-04] MEDS: LORazepam 0.5MG TABLET PO PRN (16:36)
[2020-10-04] MEDS ORDERED: CEFTRIAXONE 1,000 MG in DEXTROSE 5% 50 ML IVPB SCH (18:00)
[2020-10-04] MEDS: CEFTRIAXONE 1,000 MG in DEXTROSE 5% 50 ML IVPB SCH (18:21)
[2020-10-04 21:17] VITALS: BP 127/84
[2020-10-04] MEDS: ENOXAPARIN 40 MG/0.4 ML SQ SCH (22:14)
[2020-10-04] MEDS: LORazepam 0.5MG TABLET PO SCH (22:14)
[2020-10-04] MEDS: THIAMINE 200 MG, MVI ADULT 10 ML, FOLIC ACID 1 MG in D5%-0.9% NACL 1,000 ML IV SCH (23:11)
[2020-10-05 02:02] VITALS: BP 129/84
[2020-10-05] MEDS: NS + 20MEQ KCL 1,000 ML IV SCH ×2 (03:49→17:51)
[2020-10-05 06:31] LABS: BASOPHILS % (AUTO) 1 % (0-1); EOSINOPHILS % (AUTO) 5 % (1-7); LYMPHOCYTES % (AUTO) 21 % (22-44); MEAN CORPUSCULAR HEMOGLOBIN 34.9 pg (27.0-34.8); MEAN CORPUSCULAR HGB CONC 33.5 g/dL (32.4-35.8); MONOCYTES % (AUTO) 7 % (2-9); NEUTROPHILS % (AUTO) 67 % (42-75); PLATELET COUNT 322 x10^3/uL (130-400); RED BLOOD COUNT 3.41 x10^6/uL (3.82-5.3); RED CELL DISTRIBUTION WIDTH 16.1 % (9.6-15.2)
[2020-10-05 06:35] LABS: CHLORIDE 110 mmol/L (98-107)
[2020-10-05 07:00] LABS: ALANINE AMINOTRANSFERASE 25 U/L (12-78); ALBUMIN 2.6 g/dL (3.4-5.0); ALKALINE PHOSPHATASE 125 U/L (45-117); ANION GAP 6 mmol/L (5-15); BILIRUBIN,TOTAL 0.5 mg/dL (0.2-1.0); CALCIUM 7.7 mg/dL (8.5-10.1); CREATININE 0.49 mg/dL (0.55-1.02); TOTAL PROTEIN 6.2 g/dL (6.4-8.2)
[2020-10-05 08:32] VITALS: BP 152/98
[2020-10-05] MEDS: LORazepam 0.5MG TABLET PO SCH ×3 (09:14→20:49)
[2020-10-05] MEDS ORDERED: POTASSIUM CHLORIDE 40 MEQ in SODIUM CHLORIDE 0.9% 500 ML IV ONE (10:00)
[2020-10-05 14:00] VITALS: BP 145/87
[2020-10-05] MEDS: ACETAMINOPHEN 325 MG TABLET PO PRN (14:34)
[2020-10-05 16:52] VITALS: BP 145/87
[2020-10-05] MEDS: CEFTRIAXONE 1,000 MG in DEXTROSE 5% 50 ML IVPB SCH (17:51)
[2020-10-05] MEDS: ENOXAPARIN 40 MG/0.4 ML SQ SCH (20:49)
[2020-10-05 20:51] VITALS: BP 148/99
[2020-10-05] MEDS: THIAMINE 200 MG, MVI ADULT 10 ML, FOLIC ACID 1 MG in D5%-0.9% NACL 1,000 ML IV SCH (23:06)
[2020-10-06 01:01] VITALS: BP 142/86
[2020-10-06 05:01] LABS: BASOPHILS % (AUTO) 1 % (0-1); EOSINOPHILS % (AUTO) 5 % (1-7); LYMPHOCYTES % (AUTO) 18 % (22-44); MEAN CORPUSCULAR HEMOGLOBIN 35.4 pg (27.0-34.8); MEAN CORPUSCULAR HGB CONC 33.9 g/dL (32.4-35.8); MEAN PLATELET VOLUME 6.9 fL (7.4-10.4); MONOCYTES % (AUTO) 6 % (2-9); NEUTROPHILS % (AUTO) 70 % (42-75); PLATELET COUNT 338 x10^3/uL (130-400); RED BLOOD COUNT 3.54 x10^6/uL (3.82-5.3); RED CELL DISTRIBUTION WIDTH 16.1 % (9.6-15.2)
[2020-10-06 05:11] LABS: ANION GAP 4 mmol/L (5-15); CALCIUM 8.6 mg/dL (8.5-10.1); CHLORIDE 109 mmol/L (98-107); CREATININE 0.53 mg/dL (0.55-1.02)
[2020-10-06 07:19] VITALS: BP 150/102
[2020-10-06] MEDS ORDERED: MAGNESIUM SULFATE PMX 2GM/50ML 50 ML IV ONE (08:00)
[2020-10-06] MEDS ORDERED: POTASSIUM CHLORIDE 20 MEQ TAB.ER.PRT PO ONE (08:00)
[2020-10-06] MEDS: LORazepam 0.5MG TABLET PO SCH ×3 (09:34→21:19)
[2020-10-06] MEDS: LORazepam 0.5MG TABLET PO PRN (12:24)
[2020-10-06] MEDS: NS + 20MEQ KCL 1,000 ML IV SCH ×2 (13:45→22:18)
[2020-10-06 15:39] VITALS: BP 147/94
[2020-10-06] MEDS: CEFTRIAXONE 1,000 MG in DEXTROSE 5% 50 ML IVPB SCH (18:02)
[2020-10-06 19:52] VITALS: BP 158/92
[2020-10-06] MEDS: ENOXAPARIN 40 MG/0.4 ML SQ SCH (21:19)
[2020-10-06] MEDS: THIAMINE 200 MG, MVI ADULT 10 ML, FOLIC ACID 1 MG in D5%-0.9% NACL 1,000 ML IV SCH (23:23)
[2020-10-07 01:54] VITALS: BP 151/86
[2020-10-07 06:21] LABS: BASOPHILS % (AUTO) 1 % (0-1); EOSINOPHILS % (AUTO) 4 % (1-7); LYMPHOCYTES % (AUTO) 19 % (22-44); MEAN CORPUSCULAR HEMOGLOBIN 35.1 pg (27.0-34.8); MEAN CORPUSCULAR HGB CONC 33.7 g/dL (32.4-35.8); MEAN PLATELET VOLUME 7.2 fL (7.4-10.4); MONOCYTES % (AUTO) 7 % (2-9); NEUTROPHILS % (AUTO) 69 % (42-75); PLATELET COUNT 335 x10^3/uL (130-400); RED BLOOD COUNT 3.54 x10^6/uL (3.82-5.3); RED CELL DISTRIBUTION WIDTH 16.2 % (9.6-15.2)
[2020-10-07 06:31] LABS: ANION GAP 5 mmol/L (5-15); CALCIUM 8.7 mg/dL (8.5-10.1); CHLORIDE 108 mmol/L (98-107)
[2020-10-07 06:32] LABS: CREATININE 0.64 mg/dL (0.55-1.02)
[2020-10-07 07:40] VITALS: BP 153/90
[2020-10-07] MEDS: LORazepam 0.5MG TABLET PO SCH (09:49)
[2020-10-07 12:45] VITALS: BP 152/91
[2020-10-07] MEDS ORDERED: CEFD300C37 PO (13:27)
[2020-10-07] MEDS ORDERED: LORA-445 PO (13:27)
== END 2020-10-07 15:15 | disposition home or self-care (01) | DRG 872 ==
LOC: ED 19:06 → EDIP 19:26 → 4EST 20:40 → DCLOUNGE 10-07 15:10
PROVIDERS: ADMIT Family Medicine; ATTEND Internal Medicine
PROC: 0T9B70Z Drainage of Bladder with Drainage Device, Via Natural or Artificial Opening (ICD-10-PCS; principal; 2020-10-03)
DX: A41.9 Sepsis, unspecified organism (principal); N39.0 Urinary tract infection, site not specified; F10.139 Alcohol abuse with withdrawal, unspecified; J44.9 Chronic obstructive pulmonary disease, unspecified; E87.6 Hypokalemia; F17.210 Nicotine dependence, cigarettes, uncomplicated; I10 Essential (primary) hypertension; R65.20 Severe sepsis without septic shock; B96.20 Unspecified Escherichia coli [E. coli] as the cause of diseases classified elsewhere; E83.42 Hypomagnesemia; F10.10 Alcohol abuse, uncomplicated; Z59.0 Homelessness; Z90.49 Acquired absence of other specified parts of digestive tract; Z90.710 Acquired absence of both cervix and uterus
CPT/HCPCS: 36415; 71045; 74177; 80048; 80053; 81001; 83605; 83690; 83735; 84100; 85025; 87040; 87077; 87086; 87186; 93005; 96361; 96374; G0378; J0696; J1650; J1885; J3411; J3480; J7042; Q9967; J2060; J3475; J7030; J7040